=== PATIENT | female | born 1955 | race African-American/Black ===

== ENCOUNTER 2017-11-23 14:35 | Emergency (ER) | payer OTHER ==
--- NOTE | 2017-11-23 15:39 | ER Document Report ---
ED Medical Screen (RME) - General Chief Complaint: Eye Problem Stated Complaint: VISION ISSUE Time Seen by Provider: 11/23/17 15:37 Mode of Arrival: Ambulatory Information source: Patient Notes: 62-year-old female who presents to the emergency room with right visual changes. Patient states she has had squiggly lines in the right eye. She denies any pain. She denies any foreign body sensation. She states that the symptoms started Wednesday (4 days ago). Past medical history: Hypertension, dyslipidemia, arthritis [facility] care physician: Robert TRAVEL OUTSIDE OF THE [place] IN LAST 30 DAYS: No - Related Data Allergies/Adverse Reactions: aspirin Allergy (Verified 11/23/17 14:38) Physical Exam - Vital signs Vitals: Temp Pulse Resp BP Pulse Ox 98.4 F 81 20 146/64 H 96 11/23/17 14:49 11/23/17 14:49 11/23/17 14:49 11/23/17 14:49 11/23/17 14:49 Course - Vital Signs Vital signs: Temp Pulse Resp BP Pulse Ox 98.4 F 81 20 146/64 H 96 11/23/17 14:49 11/23/17 14:49 11/23/17 14:49 11/23/17 14:49 11/23/17 14:49
--- NOTE | 2017-11-23 18:21 | ER Document Report ---
ED General - General Chief Complaint: Eye Problem Stated Complaint: VISION ISSUE Time Seen by Provider: 11/23/17 15:37 Mode of Arrival: Ambulatory Information source: Patient, [facility] Records Notes: 62-year-old female with hypertension, hyperlipidemia, arthritis presents with complaint of right eye visual changes that started 4 days prior to arrival. Patient states that she noticed floating black dots in her vision 4 days ago. She states since then she has had them intermittently. She denies any visual loss, eye pain, eye injury, headache, temporal tenderness. She does wear corrective lenses. TRAVEL OUTSIDE OF THE [place] IN LAST 30 DAYS: No - HPI Onset: Other Onset/Duration: Gradual, Persistent Quality of pain: No pain Severity: Mild Pain Level: Denies Associated symptoms: None Exacerbated by: Denies Relieved by: Denies Similar symptoms previously: No Recently seen / treated by doctor: No - Related Data Allergies/Adverse Reactions: aspirin Allergy (Verified 11/23/17 15:39) Past Medical History - General Information source: Patient - Social History Smoking Status: Never Smoker Chew tobacco use (# tins/day): No Frequency of alcohol use: None Drug Abuse: None Lives with: Family Family History: Reviewed & Not Pertinent Patient has suicidal ideation: No Patient has homicidal ideation: No - Past Medical History Cardiac Medical History: Reports: Hx Hypercholesterolemia Pulmonary Medical History: Reports: Hx Asthma Renal/ Medical History: Denies: Hx Peritoneal Dialysis Past Surgical History: Reports: Hx Tubal Ligation Review of Systems - Review of Systems Notes: REVIEW OF SYSTEMS: CONSTITUTIONAL : Denies fever, chills, or sweats. Denies recent illness. Denies weight loss, recent hospitalizations. EENT: Denies eye pain. Denies nasal or sinus congestion or discharge. Denies sore throat, oral lesions, difficulty swallowing. CARDIOVASCULAR: Denies chest pain. Denies palpitations. Denies lower extremity edema. RESPIRATORY: Denies cough, cold, or chest congestion. Denies shortness of breath, wheezing. GASTROINTESTINAL: Denies abdominal pain or distention. Denies nausea, vomiting , or diarrhea. Denies blood in vomitus, stools, or per rectum. Denies black, tarry stools. Denies constipation. GENITOURINARY: Denies difficulty urinating, painful urination, frequency, blood in urine, or vaginal discharge. MUSCULOSKELETAL: Denies back or neck pain or stiffness. Denies joint pain or swelling. SKIN: Denies rash, lesions or sores. HEMATOLOGIC : Denies easy bruising or bleeding. LYMPHATIC: Denies swollen glands. NEUROLOGICAL: Denies confusion or altered mental status. Denies passing out or loss of consciousness. Denies dizziness or lightheadedness. Denies headache. Denies weakness or paralysis. Denies problems difficulty with ambulation, slurred speech. Denies sensory loss, numbness, or tingling. Denies seizures. PSYCHIATRIC: Denies anxiety or stress. Denies depression, suicidal ideation, or homicidal ideation. Denies visual or auditory hallucinations. Physical Exam - Vital signs Vitals: Temp Pulse Resp BP Pulse Ox 98.4 F 81 20 146/64 H 96 11/23/17 14:49 11/23/17 14:49 11/23/17 14:49 11/23/17 14:49 11/23/17 14:49 - Notes Notes: PHYSICAL EXAMINATION: GENERAL: Well-appearing, well-nourished and in no acute distress. HEAD: Atraumatic, normocephalic. EYES: Pupils equal round and reactive to light, extraocular movements intact, conjunctiva are normal. ENT: Nares patent, oropharynx clear without exudates. Moist mucous membranes. NECK: Normal range of motion, supple without lymphadenopathy LUNGS: Breath sounds clear to auscultation bilaterally and equal. No wheezes rales or rhonchi. HEART: Regular rate and rhythm without murmurs ABDOMEN: Soft, nontender, nondistended abdomen. No guarding, no rebound. No masses appreciated. Female : deferred Musculoskeletal: Normal range of motion, no pitting or edema. No cyanosis. NEUROLOGICAL: Cranial nerves grossly intact. Normal speech, normal gait. Normal sensory, motor exams PSYCH: Normal mood, normal affect. SKIN: Warm, Dry, normal turgor, no rashes or lesions noted. - HEENT Visual acuity- Right eye: 20-25 Visual acuity- Left eye: 20-40 Visual acuity- Both eyes: 20-25 Corrective lenses worn: Yes Course - Re-evaluation Re-evalutation: 62-year-old female with hypertension, hyperlipidemia, arthritis presents with complaint of right eye visual changes that started 4 days prior to arrival. Patient states that she noticed floating black dots in her vision 4 days ago. She states since then she has had them intermittently. She denies any visual loss, eye pain, eye injury, headache, temporal tenderness. She does wear corrective lenses. Patient was seen by myself upon arrival. Vital signs were reviewed. Patient is afebrile, normotensive and not hypoxic. OD-20/25, OS 20/40 , OU 20/25. Patient does not appear toxic or dehydrated. They are in no acute distress. Previous medical records and nursing notes reviewed. Patient is without fluorescein uptake and has a normal slit lamp exam. Dr. Flores from ophthalmology agrees to see the patient tomorrow. Patient states that she will be on her way back to [place] tomorrow will follow up with her own eye doctor. She was still given the information for a Dr. Flores and encouraged to stay in town a little longer until evaluated by ophthalmology. Patient is agreeable. Patient provided the opportunity to ask questions, and express concerns. Discharge instructions discussed. Patient is agreeable with discharge home. Return indications explained and discussed with the patient who displays understanding. Patient encouraged to return to the emergency department immediately with any concerns. 11/23/17 18:47 Ophthalmology consult initiated. 11/23/17 22:29 11/23/17 22:30 - Vital Signs Vital signs: Temp Pulse Resp BP Pulse Ox 98.3 F 67 16 131/68 H 98 11/23/17 19:11 11/23/17 19:11 11/23/17 19:11 11/23/17 19:11 11/23/17 19:11 Procedures - Eye Procedure Right Time completed: 22:29 Fluorescein applied: Right - No fluorescein uptake seen Slit lamp used: Yes Notes: 11/23/17 22:29 No abnormalities appreciated. Discharge - Discharge Clinical Impression: Vitreous detachment of right eye, History of chronic hypertension, Visual changes Condition: Good Disposition: HOME, SELF-CARE Additional Instructions: Your exam is consistent with a vitreous detachment. Symptoms of this are floaters and flashes of light. The symptoms could get worse over the next few days. Although this is not usually site threatening can lead to a retinal detachment which could lead to permanent eye damage. Most patients go on and symptoms subside without intervention but we recommend that you be seen by her fixed income trading vice president as soon as possible. Forms: Elevated Blood Pressure Referrals: WILFRID FLORES MD [ACTIVE STAFF] - Follow up in 3-5 days
[2017-11-23 19:14] VITALS: BP 131/68
== END 2017-11-23 19:14 | disposition home or self-care (01) ==
LOC: ER 14:35
DX: H57.8 Other specified disorders of eye and adnexa (principal); H43.811 Vitreous degeneration, right eye; H53.9 Unspecified visual disturbance; E78.00 Pure hypercholesterolemia, unspecified; Z98.51 Tubal ligation status
CPT/HCPCS: 99283